=== PATIENT | male | born 1955 | race Caucasian/White ===

== ENCOUNTER 2019-04-13 23:42 | Emergency (ER) | payer MEDICAID ==
[~2019-04-13] VITALS: Ht 165.1 cm; Wt 73.0 kg
[2019-04-14] MEDS ORDERED: VANCOMYCIN 1 G PREMIX 200 ML IV STA (00:19)
[2019-04-14] MEDS ORDERED: PIPERACILLIN/TAZOBACTAM 3.375GM/50ML PREMIX IV ONE (00:30)
[2019-04-14] MEDS ORDERED: TETANUS, DIPHTHERIA, PERTUSSIS VAC/PF 0.5ML (>7YR OLD) IM ONE (00:30)
[2019-04-14] MEDS ORDERED: PIPERACILLIN/TAZ 3.375G PREMIX 50 ML IV NR (00:45)
[2019-04-14 03:56] VITALS: BP 126/84
== END 2019-04-14 03:59 | disposition home or self-care (01) ==
LOC: ER 23:42
DX: S40.812A Abrasion of left upper arm, initial encounter (principal); S40.811A Abrasion of right upper arm, initial encounter; S21.012A Laceration without foreign body of left breast, initial encounter; L03.313 Cellulitis of chest wall; S20.312A Abrasion of left front wall of thorax, initial encounter; Y04.2XXA Assault by strike against or bumped into by another person, initial encounter; Y93.01 Activity, walking, marching and hiking; Y92.512 Supermarket, store or market as the place of occurrence of the external cause
CPT/HCPCS: 90471; 90715; 96365; 96366; 96368; 99283; J2543; J3370; Z7610

== ENCOUNTER 2021-03-12 11:17 | Emergency (ER) | payer MEDICAID ==
[~2021-03-12] VITALS: Ht 167.6 cm; Wt 69.0 kg
[2021-03-12] MEDS ORDERED: ONDANSETRON HCL 4MG/2ML INJ IV STA (11:32)
[2021-03-12] MEDS ORDERED: SODIUM CHLORIDE 0.9% 1,000 ML IV ONE (11:45)
[2021-03-12 12:08] LABS: BASOPHILS % 0.8 % (0.0-2.0); EOSINOPHILS % 0.2 % (0.0-5.0); HEMOGLOBIN. 13.5 g/dL (14.0-18.0); LYMPHOCYTES % 17.8 % (20.0-50.0); MEAN CORPUSCULAR HEMOGLOBIN 31.2 pg (28.0-32.0); MEAN CORPUSCULAR VOLUME 88.1 fL (80.0-94.0); MEAN PLATELET VOLUME 8.5 fl (7.4-10.4); MONOCYTES % 5.6 % (2.0-8.0); NEUTROPHILS % 75.6 % (40.0-76.0); PLATELET 144 x1000/uL (130-400); RED BLOOD CELL COUNT 4.32 mill/uL (4.7-6.1); RED CELL DISTRIBUTION WIDTH 13.8 % (11.6-14.6)
[2021-03-12 12:12] LABS: CHLORIDE 106 mEq/L (98-107)
[2021-03-12 12:16] LABS: PROTHROMBIN TIME 10.3 sec (9.6-11.0)
[2021-03-12 12:26] LABS: CLARITY URINE CLEAR (CLEAR); COLOR URINE YELLOW (YELLOW); KETONES URINE TRACE (NEGATIVE); LEUKOCYTE ESTERASE URINE NEGATIVE (NEGATIVE); NITRITE URINE NEGATIVE (NEGATIVE); OCCULT BLOOD URINE 2+ (NEGATIVE); PH URINE 5.5 (4.5-8.0); PROTEIN URINE 4+ (NEGATIVE); SPECIFIC GRAVITY URINE 1.031 (1.005-1.030); UROBILINOGEN URINE 0.2 E.U./dL (0.2-1.0)
[2021-03-12] MEDS ORDERED: VISCOUS LIDOCAINE 2% 15 ML UDC PO ONE (12:30)
[2021-03-12] MEDS ORDERED: MAGNESIUM/ALUMINUM HYDROXIDE/SIMETHICONE 30ML UDC PO ONE (12:30)
[2021-03-12] MEDS ORDERED: OMEP20CA14 MT (15:23)
[2021-03-12] MEDS ORDERED: CHLORDIAZEPOXIDE 10MG CAPSULE PO ONE (15:30)
[2021-03-12 15:55] VITALS: BP 188/112
== END 2021-03-12 16:30 | disposition home or self-care (01) ==
LOC: ER 11:23
DX: R11.2 Nausea with vomiting, unspecified (principal); R10.13 Epigastric pain
CPT/HCPCS: 36415; 80053; 81003; 82962; 83690; 85025; 85610; 96361; 96374; 99283; J2405; J7030; Z7610